=== PATIENT | male | born 1955 | race Caucasian/White ===

== ENCOUNTER 2017-01-11 10:57 | Day surgery (SDC) | payer OTHER ==
[~2017-01-11] VITALS: Ht 180.3 cm; Wt 90.7 kg
[~2017-01-11 10:57] MED LIST: LO-DOSE ASPIRIN81 M2 PO; PERCOCET 5/31 TABLET PO; PRINIVIL10 MG PO; PROTONIX40 MG PO; SIMVASTATIN20 M1 PO; ZESTRIL20 MG PO; ZOCOR40 MG PO
== END 2017-01-11 12:46 | disposition home or self-care (01) ==
LOC: PAIN 10:57 → SDC 11:45 → PAIN 12:46
DX: M47.816 Spondylosis without myelopathy or radiculopathy, lumbar region (principal); M54.5 Low back pain; M51.36 Other intervertebral disc degeneration, lumbar region; I10 Essential (primary) hypertension; K21.9 Gastro-esophageal reflux disease without esophagitis; E78.5 Hyperlipidemia, unspecified; Z79.891 Long term (current) use of opiate analgesic; F17.290 Nicotine dependence, other tobacco product, uncomplicated
CPT/HCPCS: J1030; J2250; J3010; S0020

== ENCOUNTER 2017-02-22 09:55 | Day surgery (SDC) | payer OTHER ==
[~2017-02-22] VITALS: Ht 180.3 cm; Wt 90.7 kg
== END 2017-02-22 12:02 | disposition home or self-care (01) ==
LOC: PAIN 09:55 → SDC 10:30 → PAIN 12:02
DX: M47.812 Spondylosis without myelopathy or radiculopathy, cervical region (principal); M54.2 Cervicalgia; G89.29 Other chronic pain; M51.36 Other intervertebral disc degeneration, lumbar region; I10 Essential (primary) hypertension; E78.5 Hyperlipidemia, unspecified; K21.9 Gastro-esophageal reflux disease without esophagitis; F17.290 Nicotine dependence, other tobacco product, uncomplicated; M47.816 Spondylosis without myelopathy or radiculopathy, lumbar region; Z98.1 Arthrodesis status; E66.3 Overweight; Z68.27 Body mass index [BMI] 27.0-27.9, adult; Z79.891 Long term (current) use of opiate analgesic; Z85.828 Personal history of other malignant neoplasm of skin
CPT/HCPCS: J1030; J2250; J3010; S0020

== ENCOUNTER 2017-03-01 09:58 | Day surgery (SDC) | payer OTHER ==
[~2017-03-01] VITALS: Ht 180.3 cm; Wt 90.7 kg
== END 2017-03-01 11:20 | disposition home or self-care (01) ==
LOC: PAIN 09:58 → SDC 10:30 → PAIN 10:30
DX: M47.812 Spondylosis without myelopathy or radiculopathy, cervical region (principal); M50.31 Other cervical disc degeneration, high cervical region; M51.36 Other intervertebral disc degeneration, lumbar region; I10 Essential (primary) hypertension; E78.5 Hyperlipidemia, unspecified; K21.9 Gastro-esophageal reflux disease without esophagitis; Z98.1 Arthrodesis status; Z85.828 Personal history of other malignant neoplasm of skin; F17.290 Nicotine dependence, other tobacco product, uncomplicated; Z79.891 Long term (current) use of opiate analgesic
CPT/HCPCS: J1030; J2250; J3010; S0020

== ENCOUNTER 2017-04-14 09:58 | Day surgery (SDC) | payer OTHER ==
[~2017-04-14] VITALS: Ht 180.3 cm; Wt 93.0 kg
== END 2017-04-14 12:25 | disposition home or self-care (01) ==
LOC: PAIN 09:58 → SDC 11:30 → PAIN 11:30
DX: M47.816 Spondylosis without myelopathy or radiculopathy, lumbar region (principal); M54.5 Low back pain; G89.29 Other chronic pain; M51.36 Other intervertebral disc degeneration, lumbar region; I10 Essential (primary) hypertension; E78.5 Hyperlipidemia, unspecified; K21.9 Gastro-esophageal reflux disease without esophagitis; F17.290 Nicotine dependence, other tobacco product, uncomplicated; Z79.82 Long term (current) use of aspirin
CPT/HCPCS: J1030; J2250; J3010; S0020

== ENCOUNTER 2017-05-17 13:04 | Day surgery (SDC) | payer OTHER ==
[~2017-05-17] VITALS: Ht 180.3 cm; Wt 90.7 kg
[~2017-05-17 13:04] MED LIST changes: +MOTRIN800 MG PO
== END 2017-05-17 14:55 | disposition home or self-care (01) ==
LOC: PAIN 13:04
DX: M47.816 Spondylosis without myelopathy or radiculopathy, lumbar region (principal); M51.36 Other intervertebral disc degeneration, lumbar region; M54.5 Low back pain; G89.29 Other chronic pain; M47.812 Spondylosis without myelopathy or radiculopathy, cervical region; I10 Essential (primary) hypertension; K21.9 Gastro-esophageal reflux disease without esophagitis; F17.290 Nicotine dependence, other tobacco product, uncomplicated; Z98.1 Arthrodesis status; Z85.828 Personal history of other malignant neoplasm of skin; Z79.891 Long term (current) use of opiate analgesic; Z79.82 Long term (current) use of aspirin
CPT/HCPCS: J1030; J2250; J3010; S0020

== ENCOUNTER 2017-05-24 12:04 | Day surgery (SDC) | payer OTHER ==
[~2017-05-24] VITALS: Ht 180.3 cm; Wt 92.9 kg
== END 2017-05-24 13:27 | disposition home or self-care (01) ==
LOC: PAIN 12:04 → SDC 12:30 → PAIN 13:27
DX: M47.816 Spondylosis without myelopathy or radiculopathy, lumbar region (principal); M54.5 Low back pain; G89.29 Other chronic pain; M51.36 Other intervertebral disc degeneration, lumbar region; M47.812 Spondylosis without myelopathy or radiculopathy, cervical region; I10 Essential (primary) hypertension; E78.5 Hyperlipidemia, unspecified; K21.9 Gastro-esophageal reflux disease without esophagitis; Z98.1 Arthrodesis status; Z79.82 Long term (current) use of aspirin; Z85.828 Personal history of other malignant neoplasm of skin; F17.290 Nicotine dependence, other tobacco product, uncomplicated; Z79.891 Long term (current) use of opiate analgesic
CPT/HCPCS: J1030; J3010; S0020

== ENCOUNTER 2017-11-22 12:04 | Day surgery (SDC) | payer OTHER ==
[~2017-11-22] VITALS: Ht 180.3 cm; Wt 93.0 kg
[2017-11-25] MEDS ORDERED: PERCOCET 5/31 TABLET PO (13:13)
== END 2017-11-22 13:55 | disposition home or self-care (01) ==
LOC: PAIN 12:04 → SDC 12:30 → PAIN 13:55
PROC: BR141ZZ Fluoroscopy of Cervical Facet Joint(s) using Low Osmolar Contrast (ICD-10-PCS; principal; 2017-11-22)
PROC: 3E0T3TZ Introduction of Destructive Agent into Peripheral Nerves and Plexi, Percutaneous Approach (ICD-10-PCS; principal; 2017-11-22)
DX: M47.812 Spondylosis without myelopathy or radiculopathy, cervical region (principal); M51.36 Other intervertebral disc degeneration, lumbar region; M79.1 Myalgia; F17.290 Nicotine dependence, other tobacco product, uncomplicated; Z98.1 Arthrodesis status; Z85.828 Personal history of other malignant neoplasm of skin
CPT/HCPCS: J1030; J2250; S0020

== ENCOUNTER 2017-11-29 06:55 | Day surgery (SDC) | payer OTHER ==
[~2017-11-29] VITALS: Ht 180.3 cm; Wt 93.0 kg
== END 2017-11-29 09:35 | disposition home or self-care (01) ==
LOC: PAIN 06:55 → SDC 07:30 → PAIN 09:35
DX: M47.812 Spondylosis without myelopathy or radiculopathy, cervical region (principal); F17.290 Nicotine dependence, other tobacco product, uncomplicated; M51.36 Other intervertebral disc degeneration, lumbar region; M47.816 Spondylosis without myelopathy or radiculopathy, lumbar region; M79.1 Myalgia
CPT/HCPCS: J1030; J1885; J2250; S0020